=== PATIENT | female | born 1995 | race Caucasian/White ===

== ENCOUNTER 2017-09-03 01:07 | Emergency (ER) | payer MEDICAID, SELFPAY ==
[2017-09-03] MEDS ORDERED: Bicillin LA 1.2 MILLION UNITS/2 ML SYRINGE ONE (01:55)
[2017-09-03] MEDS ORDERED: Ibuprofen 200 MG TAB ONE (01:55)
== END 2017-09-03 02:15 | disposition home or self-care (01) ==
LOC: NAV ERS 01:07
DX: J02.9 Acute pharyngitis, unspecified (principal); F17.210 Nicotine dependence, cigarettes, uncomplicated
CPT/HCPCS: 96372; 99406; J0561

== ENCOUNTER 2018-02-08 13:10 | Emergency (ER) | payer MEDICAID, SELFPAY ==
[2018-02-08 14:09] LABS: #Basophils 0.1 thou/uL (0.0-0.2); #Eosinphils 0.1 thou/uL (0.0-0.7); #Lymphocytes 1.3 thou/uL (1.20-3.40); #Monocytes 0.9 thou/uL (0.11-0.59); #Neutrophils 9.6 thou/uL (1.40-6.50); %Basophils 0.9 % (0.0-1.0); %Eosinophils 0.5 % (0.0-10.0); %Lymphocytes 10.5 % (28.0-48.0); %Monocytes 7.6 % (0.0-4.0); %Neutrophils 80.5 % (31.0-61.0); Hemoglobin 13.2 g/dL (12.0-16.0); Mean Corpuscular HGB CONC 32.1 g/dL (32.0-36.0); Mean Corpuscular Hemoglobin 27.1 pg (25.0-35.0); Mean Corpuscular Volume 84.3 fL (78.0-98.0); Mean Platelet Volume 8.5 fL (7.4-10.4); Platelet Count 252 thou/uL (130-400); Red Blood Cell (RBC) Count 4.89 mill/uL (4.00-5.20)
[2018-02-08 14:24] LABS: Bilirubin Small (Negative); Blood, Urine Trace (Negative); Clarity Clear (Clear); Glucose, Urine (Dipstick) Negative (Negative); Leukocyte Large (Negative); Nitrite Positive (Negative); Protein, Urine (Dipstick) Trace mg/dL (Neg-Trace); Specific Gravity, Urine 1.025 (1.005-1.030)
[2018-02-08 14:27] LABS: Bacteria/HPF 1+ HPF (None Seen); Other Microscopic Description NO; RBC/HPF 0-3 HPF (0-3)
[2018-02-08] MEDS ORDERED: Acetaminophen 500 MG TAB ONE (15:08)
--- NOTE | 2018-02-08 15:28 | ULT ---
TRANSVAGINAL PELVIC ULTRAASOUND WITH KING SCALE AND COLOR FLOW AND SPECTRAL DOPPLER: Date: 02/08/18 HISTORY: 22-year-old female with left-sided abdominal pain. FINDINGS: A single, live intrauterine gestation is seen, with measurements corresponding to an estimated gestat ional age of 16 weeks/0 days and LUCRECIA at 07/26/18. The heart rate measures 162 beats/minute. Xiomara centa is posteriorly located without evidence of placenta previa. measurements are as follows: BPD: 3.18 cm, 16 weeks/0 days HC: 11.86 cm, 15 weeks/6 days AC: 9.92 cm, 16 weeks/0 days FL: 1.95 cm, 15 weeks/6 days Three vessel cord, stomach, four chamber heart, and urinary bladder are visualized. IMPRESSION: Single, live intrauterine of 16 weeks estimated gestational age and LUCRECIA at 07/26/18. POS: [facility]
== END 2018-02-08 15:11 | disposition home or self-care (01) ==
LOC: NAV ERS 13:10
DX: O20.0 Threatened abortion (principal); O23.42 Unspecified infection of urinary tract in pregnancy, second trimester; O99.342 Other mental disorders complicating pregnancy, second trimester; F41.9 Anxiety disorder, unspecified; F31.9 Bipolar disorder, unspecified; Z87.891 Personal history of nicotine dependence
CPT/HCPCS: 76856; 81003; 81015; 85025; 86900; 86901

== ENCOUNTER 2018-05-05 04:17 | Emergency (ER) | payer MEDICAID, OTHER | END 2018-05-05 05:21 | disposition home or self-care (01) | LOC: NAV ERS 04:17 | DX: J06.9 Acute upper respiratory infection, unspecified (principal); F41.9 Anxiety disorder, unspecified; F31.9 Bipolar disorder, unspecified; Z87.891 Personal history of nicotine dependence; Z79.899 Other long term (current) drug therapy | CPT/HCPCS: 87804; 99283 ==